=== PATIENT | female | born 1960 | race African-American/Black ===

== ENCOUNTER 2017-05-20 04:58 | Emergency (ER) | payer BC ==
[2017-05-20] MEDS ORDERED: SODIUM CHLORIDE 1,000 ML IV SCH (05:15)
[2017-05-20] MEDS ORDERED: FAMOTIDINE 20 MG/50 ML IVPB 50 ML IVPB ONE ×2 (05:24→05:26)
[2017-05-20] MEDS ORDERED: MAG HYDROX/AL HYDROX/SIMETH 30 ML UNIT-DOSE CUP PO ONE (05:24)
[2017-05-20] MEDS ORDERED: MAG HYDROX/AL HYDROX/SIMETH 30 ML UNIT-DOSE CUP ONE (05:25)
[2017-05-20 05:26] LABS: BASOPHIL 0.7 % (0-2.0); MCH 31.2 pg (25.7-33.7); MCHC 33.6 g/dl (32.0-36.0); MEAN PLT VOLUME 8.1 fl (7.5-11.1); NEUTROPHILS 67.6 % (42.8-82.8); PLATELET COUNT 242 K/MM3 (134-434); RDW 13.5 % (11.6-15.6); WHITE BLOOD COUNT 9.5 K/mm3 (4.0-10.0)
[2017-05-20 05:33] VITALS: BMI 24.9
--- NOTE | 2017-05-20 05:41 | PDOC ---
History of Present Illness <Kevin Christianson - Last Filed: 05/20/17 07:25> - General History Source: Patient Exam Limitations: No Limitations - History of Present Illness Travel History: No Initial Comments: 05/20/17 05:44 57-year-old female with a history of migraines, reflux and GERD presents to the emergency department complaining of right sided cp "more behind the right breast" which is a usual presentation for her reflux 2 days. Pain is described as 6/10 dull nonradiating intermittent discomfort. Pain is exacerbated on touch and alleviated minimally at rest. Patient states she ran out of protonix. Patient denies fever, chills, nausea/vomiting, rhinorrhea, nasal congestion, difficulty breathing, shortness of breath, abdominal discomfort, flank pains, urinary symptoms. Timing/Duration: reports: intermittent Abdominal Pain Onset Location: reports: RUQ ("behind right breast) Pain Radiation: reports: no radiation <Eileen Vega - Last Filed: 05/22/17 23:54> - General Chief Complaint: Chest Pain Stated Complaint: CHEST PAIN Time Seen by Provider: 05/20/17 05:14 Past History <Kevin Christianson - Last Filed: 05/20/17 07:25> - Past Medical History GI Disorders: Yes (gerd) - Surgical History Cholecystectomy: Yes - Suicide/Smoking/Psychosocial Hx Smoking History: Never smoked <Eileen Vega - Last Filed: 05/22/17 23:54> - Past Medical History Allergies/Adverse Reactions: Allergies Allergy/AdvReac Type Severity Reaction Status Date / Time aspirin Allergy Verified 05/20/17 05:14 diazepam [From Valium] Allergy Verified 05/20/17 05:14 NSAIDS (Non-Steroidal Allergy Verified 05/20/17 05:17 Anti-Inflamma shrimp Allergy Verified 05/20/17 05:17 Home Medications: Ambulatory Orders Pantoprazole Sodium [Protonix] 40 mg PO BID #60 tablet. 05/20/17 Pantoprazole Sodium [Protonix] 40 mg PO DAILY 05/20/17 Review of Systems - Review of Systems Able to Perform ROS?: Yes Comments:: 05/20/17 05:43 CONSTITUTIONAL: Absent: fever, chills, diaphoresis, generalized weakness, malaise, loss of appetite HEENT: Absent: rhinorrhea, nasal congestion, throat pain, throat swelling, difficulty swallowing, mouth swelling, ear pain, eye pain, visual Changes CARDIOVASCULAR: Absent: chest pain, loss of consciousness, palpitations, irregular heart rate, peripheral edema RESPIRATORY: Absent: cough, shortness of breath, dyspnea with exertion, orthopnea, wheezing, stridor, hemoptysis GASTROINTESTINAL: RUQ pain Absent: , abdominal distension, nausea, vomiting, diarrhea, constipation, melena , hematochezia GENITOURINARY: Absent: dysuria, frequency, urgency, hesitancy, hematuria, flank pain, genital pain MUSCULOSKELETAL: Absent: myalgia, arthralgia, joint swelling SKIN: Absent: rash, itching, pallor HEMATOLOGIC/IMMUNOLOGIC: Absent: easy bleeding, easy bruising, lymphadenopathy, frequent infections ENDOCRINE: Absent: unexplained weight gain, unexplained weight loss, heat intolerance, cold intolerance NEUROLOGIC: Absent: headache, focal weakness or paresthesias, dizziness, unsteady gait, seizure, mental status changes, bladder or bowel incontinence PSYCHIATRIC: Absent: anxiety, depression, suicidal or homicidal ideation, hallucinations. Is the patient limited Cymro proficient: No <Eileen Vega - Last Filed: 05/22/17 23:54> *Physical Exam - Vital Signs Last Vital Signs Temp Pulse Resp BP Pulse Ox 73 16 118/80 100 05/20/17 05:06 05/20/17 05:06 05/20/17 05:06 05/20/17 05:06 <Kevin Christianson - Last Filed: 05/20/17 07:25> - Vital Signs Last Vital Signs Temp Pulse Resp BP Pulse Ox 73 16 118/80 100 05/20/17 05:06 05/20/17 05:06 05/20/17 05:06 05/20/17 05:06 - Physical Exam Comments: 05/20/17 05:43 GENERAL: Well developed, well nourished. Awake and alert. No acute distress. HEENT: Normocephalic, atraumatic. PERRLA, EOMI. No conjunctival pallor. Sclera are non- icteric. Moist mucous membranes. Oropharynx is clear. NECK: Supple. Full ROM. No JVD. Carotid pulses 2+ and symmetric, without bruits. No thyromegaly. No lymphadenopathy. CARDIOVASCULAR: Regular rate and rhythm. No murmurs, rubs, or gallops. Distal pulses are 2+ and symmetric. PULMONARY: No evidence of respiratory distress. Lungs clear to auscultation bilaterally. No wheezing, rales or rhonchi. ABDOMINAL: Soft. Non-tender. Non-distended. No rebound or guarding. No organomegaly. Normoactive bowel sounds. MUSCULOSKELETAL Normal range of motion at all joints. No bony deformities or tenderness. No CVA tenderness. EXTREMITIES: No cyanosis. No clubbing. No edema. No calf tenderness. SKIN: Warm and dry. Normal capillary refill. No rashes. No jaundice. NEUROLOGICAL: Alert, awake, appropriate. Cranial nerves 2-12 intact. No deficits to light touch and temperature in face, upper extremities and lower extremities. No motor deficits in the in face, upper extremities and lower extremities. Normoreflexic in the upper and lower extremities. Normal speech. Toes are down- going bilaterally. Gait is normal without ataxia. PSYCHIATRIC: Cooperative. Good eye contact. Appropriate mood and affect. <Eileen Vega - Last Filed: 05/22/17 23:54> ED Treatment Course - LABORATORY CBC & Chemistry Diagram: 05/20/17 05:14 05/20/17 05:14 - ADDITIONAL ORDERS Additional order review: Laboratory Results 05/20/17 05/20/17 05:14 05:14 Sodium 143 Potassium 3.7 Chloride 110 H Carbon Dioxide 27 Anion Gap 6 L BUN 12 Creatinine 0.7 Creat Clearance w eGFR > 60 Random Glucose 87 Calcium 8.4 L Total Bilirubin 0.5 AST 18 ALT 20 Alkaline Phosphatase 117 Creatine Kinase 90 Troponin I < 0.02 Total Protein 6.4 Albumin 3.4 Total Amylase 60 Lipase 112 05/20/17 05:14 RBC 4.07 MCV 93.0 MCHC 33.6 RDW 13.5 MPV 8.1 Neutrophils % 67.6 Lymphocytes % 20.6 Monocytes % 9.1 Eosinophils % 2.0 Basophils % 0.7 - Medications Given in the ED: ED Medications Discontinued Medications Generic Name Dose Route Start Last Admin Trade Name Freq PRN Reason Stop Dose Admin Al Hydroxide/Mg Hydroxide 30 ml 05/20/17 05:24 05/20/17 05:30 Mylanta Oral Suspension - PO 05/20/17 05:25 30 ml ONCE ONE Administration Famotidine/Sodium Chloride 50 mls @ 100 mls/hr 05/20/17 05:24 05/20/17 05:30 Pepcid 20 Mg Premixed Ivpb - IVPB 05/20/17 05:53 100 mls/hr ONCE ONE Administration <Kevin Christianson - Last Filed: 05/20/17 07:25> - LABORATORY CBC & Chemistry Diagram: 05/20/17 05:14 05/20/17 05:14 - RADIOLOGY Radiology Studies Ordered: Category Date Time Status CHEST PA & LAT [RAD] Stat Radiology 05/20/17 05:13 Ordered - Medications Given in the ED: ED Medications Discontinued Medications Generic Name Dose Route Start Last Admin Trade Name Edmundq PRN Reason Stop Dose Admin Al Hydroxide/Mg Hydroxide 30 ml 05/20/17 05:24 05/20/17 05:30 Mylanta Oral Suspension - PO 05/20/17 05:25 30 ml ONCE ONE Administration <Eileen Vega - Last Filed: 05/22/17 23:54> Progress Note - Progress Note Progress Note: 0700hrs: Signed out to VAN Christianson/re-assess, repeat cardiac enzymes <Eileen Vega - Last Filed: 05/22/17 23:54> *DC/Admit/Observation/Transfer <Kevin Christianson - Last Filed: 05/20/17 07:25> <Eileen Vega - Last Filed: 05/22/17 23:54> Diagnosis at time of Disposition: Chest pain - Discharge Dispostion Disposition: HOME Condition at time of disposition: Improved - Prescriptions Prescriptions: Pantoprazole Sodium [Protonix] 40 mg PO BID #60 tablet.dr - Referrals Referrals: Kaylah Bustos MD [Primary Care Provider] - - Patient Instructions Printed Discharge Instructions: DI for Atypical Chest Pain Additional Instructions: Take medication as directed and follow up with your PMD
[2017-05-20 06:44] LABS: ALBUMIN 3.4 g/dl (3.4-5.0); ANION GAP 6 (8-16); BILIRUBIN,TOTAL 0.5 mg/dL (0.2-1.0); CALCIUM 8.4 mg/dL (8.5-10.1); CO2 27 mmol/L (21-32); CREATININE 0.7 mg/dL (0.55-1.02); GLUCOSE,RANDOM 87 mg/dL (74-106); SGOT/AST 18 U/L (15-37); SGPT/ALT 20 U/L (12-78); TOT PROT 6.4 g/dl (6.4-8.2)
[2017-05-20 06:47] LABS: ALK PHOS 117 U/L (45-117); CPK 90 IU/L (26-192); TROPONIN I < 0.02 ng/ml (0.00-0.05)
[2017-05-20 07:06] LABS: AMYLASE 60 U/L (25-115)
[2017-05-20] MEDS ORDERED: PANTOPRAZOLE 40 MG TABLET (FP) PO ONE (07:25)
--- NOTE | 2017-05-20 07:28 | PDOC ---
*Physical Exam - Vital Signs Last Vital Signs Temp Pulse Resp BP Pulse Ox 73 16 118/80 100 05/20/17 05:06 05/20/17 05:06 05/20/17 05:06 05/20/17 05:06 - Physical Exam General Appearance: Yes: Appropriately Dressed. No: Apparent Distress HEENT: positive: Normal Voice Neck: positive: Supple Respiratory/Chest: positive: Lungs Clear, Normal Breath Sounds. negative: Respiratory Distress Cardiovascular: positive: Regular Rate, S1, S2 Gastrointestinal/Abdominal: positive: Soft. negative: Tender Integumentary: positive: Dry, Warm Neurologic: positive: Fully Oriented, Alert, Normal Mood/Affect ED Treatment Course - LABORATORY CBC & Chemistry Diagram: 05/20/17 05:14 05/20/17 05:14 - ADDITIONAL ORDERS Additional order review: Laboratory Results 05/20/17 05/20/17 05:14 05:14 Sodium 143 Potassium 3.7 Chloride 110 H Carbon Dioxide 27 Anion Gap 6 L BUN 12 Creatinine 0.7 Creat Clearance w eGFR > 60 Random Glucose 87 Calcium 8.4 L Total Bilirubin 0.5 AST 18 ALT 20 Alkaline Phosphatase 117 Creatine Kinase 90 Troponin I < 0.02 Total Protein 6.4 Albumin 3.4 Total Amylase 60 Lipase 112 05/20/17 05:14 RBC 4.07 MCV 93.0 MCHC 33.6 RDW 13.5 MPV 8.1 Neutrophils % 67.6 Lymphocytes % 20.6 Monocytes % 9.1 Eosinophils % 2.0 Basophils % 0.7 - Medications Given in the ED: ED Medications Discontinued Medications Generic Name Dose Route Start Last Admin Trade Name Freq PRN Reason Stop Dose Admin Al Hydroxide/Mg Hydroxide 30 ml 05/20/17 05:24 05/20/17 05:30 Mylanta Oral Suspension - PO 05/20/17 05:25 30 ml ONCE ONE Administration Famotidine/Sodium Chloride 50 mls @ 100 mls/hr 05/20/17 05:24 05/20/17 05:30 Pepcid 20 Mg Premixed Ivpb - IVPB 05/20/17 05:53 100 mls/hr ONCE ONE Administration Medical Decision Making - Medical Decision Making 05/20/17 07:26 Patient signed out to me at 7 AM. Patient is a 57 yo female, history of migraines and GERD who ran out of her protonix and now here with chest pain similar to her GERD. Given Pepcid and Maalox in ED with no relief. Dose of protonix pending. Labs including troponin and EKG unremarkable. Pending second troponin and reassessment as per prior team 05/20/17 07:28 05/20/17 10:59 Labs negative. Patient reports some relief after protonix. Prescription sent to pharmacy. Patient instructed to follow up with PMD *DC/Admit/Observation/Transfer Diagnosis at time of Disposition: Chest pain Qualifiers: Chest pain type: unspecified Qualified Code(s): R07.9 - Chest pain, unspecified - Discharge Dispostion Disposition: HOME Condition at time of disposition: Improved - Prescriptions Prescriptions: Pantoprazole Sodium [Protonix] 40 mg PO BID #60 tablet.dr - Referrals Referrals: Kaylah Bustos MD [Primary Care Provider] - - Patient Instructions Printed Discharge Instructions: DI for Atypical Chest Pain Additional Instructions: Take medication as directed and follow up with your PMD - Post Discharge Activity
[2017-05-20 07:36] VITALS: BP 116/76; PULSE 63; TEMP 97.8
[2017-05-20] MEDS ORDERED: PANTOPRAZOLE 40 MG TABLET (FP) ONE (07:42)
--- NOTE | 2017-05-20 09:52 | EKG ---
Test Reason : Blood Pressure : / mmHG Vent. Rate : 069 BPM Atrial Rate : 069 BPM P-R Int : 140 ms QRS Dur : 078 ms QT Int : 404 ms P-R-T Axes : 048 030 058 degrees QTc Int : 432 ms NORMAL SINUS RHYTHM NORMAL ECG WHEN COMPARED WITH ECG OF 11-NOV-2010 13:29, NO SIGNIFICANT CHANGE WAS FOUND Confirmed by SENIA TORRES MD ([id number]) on 05/20/2017 9:52:25 AM Referred By: Confirmed By:SENIA TORRES MD
== END 2017-05-20 11:29 | disposition home or self-care (01) ==
LOC: JER 04:58
PROC: 3E033GC Introduction of Other Therapeutic Substance into Peripheral Vein, Percutaneous Approach (ICD-10-PCS; principal; 2017-05-20)
DX: R07.9 Chest pain, unspecified (principal); K21.9 Gastro-esophageal reflux disease without esophagitis; G43.909 Migraine, unspecified, not intractable, without status migrainosus
CPT/HCPCS: 36415; 71020-TC; 80053; 82150; 83690; 84484; 85025; 93005; 93010; 99284-25

== ENCOUNTER 2021-07-23 07:46 | Emergency (ER) | payer BC ==
[2021-07-23] MEDS ORDERED: MECLIZINE HCL 25 MG TABLET (FP) PO ONE ×2 (08:23→10:25)
[2021-07-23] MEDS ORDERED: MECLIZINE HCL 25 MG TABLET (FP) ONE ×2 (08:23→10:25)
[2021-07-23 08:36] VITALS: BP 127/66; PULSE 86; TEMP 97.8; BMI 27.4
[2021-07-23 09:03] LABS: CHLORIDE 111 mmol/L (98-107); SODIUM 142 mmol/L (136-145)
[2021-07-23 09:05] LABS: CALCIUM 8.6 mg/dL (8.5-10.1)
[2021-07-23 09:06] LABS: ALBUMIN 3.2 g/dl (3.4-5.0); ANION GAP 5 MMOL/L (8-16); BLOOD UREA NITROGEN 10.1 mg/dL (7-18); CO2 26 mmol/L (21-32); GLUCOSE,RANDOM 112 mg/dL (74-106); LIPASE 64 U/L (73-393)
[2021-07-23 09:07] LABS: BASO % 0.4 % (0-2.0); EOS % 0.2 % (0-4.5); HEMATOCRIT 38.5 % (32.4-45.2); LYMPH % 10.3 % (8-40); MCH 30.8 pg (25.7-33.7); MCHC 33.9 g/dl (32.0-36.0); MEAN CELL VOLUME 91.1 fl (80-96); MEAN PLT VOLUME 7.4 fl (7.5-11.1); MONO % 6.8 % (3.8-10.2); NEUT % 82.3 % (42.8-82.8); PLATELET COUNT 291 10^3/uL (134-434); RBC 4.23 M/mm3 (3.60-5.2); WHITE BLOOD COUNT 10.6 K/mm3 (4.0-10.0)
[2021-07-23 09:08] LABS: CREATININE 0.9 mg/dL (0.55-1.3); SGOT/AST 22 U/L (15-37)
[2021-07-23 09:09] LABS: SGPT/ALT 22 U/L (13-61)
[2021-07-23 09:10] LABS: BILIRUBIN,TOTAL 0.4 mg/dL (0.2-1); TOT PROT 6.6 g/dl (6.4-8.2)
[2021-07-23 09:11] LABS: ALK PHOS 101 U/L (45-117)
[2021-07-23] MEDS ORDERED: LORazepam 2 MG/ML SDV VIAL IVPUSH ONE (11:24)
[2021-07-23] MEDS ORDERED: LORazepam 2 MG/ML SDV VIAL ONE (11:26)
== END 2021-07-23 13:49 | disposition home or self-care (01) ==
LOC: JER 07:46
PROC: 3E033NZ Introduction of Analgesics, Hypnotics, Sedatives into Peripheral Vein, Percutaneous Approach (ICD-10-PCS; principal; 2021-07-23)
DX: H81.10 Benign paroxysmal vertigo, unspecified ear (principal)
CPT/HCPCS: 36415; 70450-TC; 80053; 82550; 83690; 84484; 85025; 93005; 93010; 99285-25